=== PATIENT | male | born 1955 | race Caucasian/White ===

== ENCOUNTER → 2022-05-14 13:29 | Outpatient (BNVA) | payer MEDICARE, SELFPAY | PROVIDERS: Family Provider Family Medicine; PCP Family Medicine; Visit Provider Family Medicine | DX: R50.9 Fever, unspecified (principal); R31.9 Hematuria, unspecified; Z91.89 Other specified personal risk factors, not elsewhere classified | CPT/HCPCS: 81003; 86618; 86666; 86757 ==

== ENCOUNTER → 2022-06-26 11:48 | Outpatient (BNVA) | payer MEDICARE, SELFPAY | PROVIDERS: Family Provider Family Medicine; PCP Family Medicine; Visit Provider Clinical Nurse Specialist Adult Health | DX: R35.0 Frequency of micturition (principal); R10.9 Unspecified abdominal pain; Z91.89 Other specified personal risk factors, not elsewhere classified; J30.2 Other seasonal allergic rhinitis; R81 Glycosuria; R50.81 Fever presenting with conditions classified elsewhere; R10.84 Generalized abdominal pain | CPT/HCPCS: 81000; 87086 ==

== ENCOUNTER → 2022-06-27 08:35 | Outpatient (BNVA) | payer MEDICARE, SELFPAY | PROVIDERS: Family Provider Family Medicine; PCP Family Medicine; Visit Provider Family Medicine | DX: R10.84 Generalized abdominal pain (principal); R81 Glycosuria; R10.9 Unspecified abdominal pain; Z91.89 Other specified personal risk factors, not elsewhere classified | CPT/HCPCS: 80053; 86757 ==

== ENCOUNTER → 2022-11-19 13:42 | Outpatient (BNVA) | payer MEDICARE, SELFPAY | PROVIDERS: Family Provider Family Medicine; PCP Family Medicine; Visit Provider Family Medicine | DX: Z00.00 Encounter for general adult medical examination without abnormal findings (principal); R74.01 Elevation of levels of liver transaminase levels | CPT/HCPCS: 80053; 80061 ==

== ENCOUNTER 2022-12-17 15:34 | Emergency (ER) | payer MEDICARE, SELFPAY ==
[2022-12-17 15:39] VITALS: BP 173/97; PULSE 73; RESP 16; TEMP 36.7; O2SAT 97
--- NOTE | 2022-12-17 16:06 | XRR_ITS ---
PROCEDURE INFORMATION: Exam: XR Left Hand Exam date and time: 12/17/2022 4:17 PM Age: 67 years old Clinical indication: Injury or trauma; Other: Impaled thumb with drill bit; Puncture; Finger; Left TECHNIQUE: Imaging protocol: Radiologic exam of the left hand. Views: 3 or more views. COMPARISON: No relevant prior studies available. FINDINGS: Bones/joints: Punctate 2.8 mm radiodensity in the soft tissues overlying the 1st metacarpal distal ulnar aspect. Mild diffuse interphalangeal joint osteoarthritis. Unfused ulnar styloid process appears chronic. Soft tissues: Normal. XR/XR hand LT min 3V* [id number] IMPRESSION: 1. Negative for fracture or dislocation. 2. Punctate 2.8 mm radiodensity in the soft tissues overlying the 1st metacarpal distal ulnar aspect. 3. Mild diffuse interphalangeal joint osteoarthritis. 4. Unfused ulnar styloid process appears chronic.
--- NOTE | 2022-12-17 16:07 | W.ED.EXTPRO ---
HPI - Extremity Problem General: Chief complaint: Extremity Injury, Upper Stated complaint: right thumb injury Time Seen by Provider: 12/17/22 15:44 History of Present Illness: Patient is a 67-year-old male who comes to the ED with left thumb injury. Patient says he was using a screwdriver and a drill bit and accidentally drilled through his left thumb. He says the bit went through 1 side of his thumb and came out the other hand. He was able to remove the drill bit before coming to the ED. He endorses having mild to moderate pain in thumb that he rates currently a 4 out of 10. Patient is up-to-date on his tetanus. Denies any other injuries. Associated symptoms: Deny chest pain, fever(s) or rash Review of Systems Const: Denies: fever(s), chills or fatigue Eyes: Denies: change in vision or eye discomfort ENMT: Denies: throat pain, odynophagia, nasal discharge or nasal congestion Card: Denies: chest pain, palpitations, edema, swelling of feet/ankles, dyspnea on exertion or orthopnea Resp: Denies: dyspnea, productive cough or non-productive cough GI: Denies: abdominal pain, nausea, vomiting, diarrhea, constipation or hematochezia : Denies: flank pain, difficulty urinating, dysuria or hematuria Musc: Reports: extremity pain (Left thumb); Denies: neck pain, back pain or extremity swelling Skin/Breast: Reports: new lesions (Puncture wound to left thumb); Denies: rash Neuro: Denies: headache(s), numbness in extremities or weakness in extremities PFS ED PFSH: Medical History (Updated 12/17/22 @ 16:51 by YOANDY Jose) Essential hypertension Seasonal allergies Family History Other Cancer Social History Smoking and tobacco status: never smoked Alcohol intake: never Physical Exam Const: COMMON NORMALS: patient oriented x3 HENMT: COMMON NORMALS: normocephalic HEAD & SCALP: normocephalic MOUTH: Normal oral and palatal mucosa present THROAT: posterior oropharynx normal and uvula midline Neck/C-Spine: COMMON NORMALS: supple GENERAL: Yes normal visual inspection Resp: COMMON NORMALS: normal respiratory effort, No retractions, No use of accessory muscles and clear to auscultation bilaterally AUSCULTATION: clear to auscultation bilaterally Cardio: COMMON NORMALS: regular rate, regular rhythm, S1 normal heart sound present, S2 normal heart sound present, No gallops present (Cardio), No clicks present (Cardio), No murmurs present (Cardio) and Peripheral pulses 2+ throughout RATE: regular rate RHYTHM: regular rhythm HEART SOUNDS: S1 normal heart sound present and S2 normal heart sound present PERIPHERAL PULSES: Peripheral pulses 2+ throughout GI: COMMON NORMALS: Normal to inspection, nondistended, normoactive bowel sounds present, Soft to palpation, non-tender and no masses PALPATION: Yes Soft to palpation : COMMON NORMALS: Yes no CVA tenderness BLADDER/KIDNEY EXAM: Yes no CVA tenderness Back/Pelvis: COMMON NORMALS: no CVA tenderness Extremity: NARRATIVE EXTREMITY EXAM: Left thumb?no nailbed or nail damage noted. No visible deformity seen. No foreign body seen. 2 puncture wounds seen on opposite sides of thumb. No active bleeding. Full range of motion in thumb, but clicking sensation felt with flexion of thumb at DIP joint neurovascular intact distally. GENERAL: Yes normal exam except as noted Neuro: COMMON NORMALS: patient oriented x3 GAIT: Yes Normal gait present Skin: GENERAL SKIN EXAM: dry skin Course Vital Signs: Vital signs: Vital Signs Temperature 98.0 F 12/17/22 15:39 Pulse Rate 73 12/17/22 15:39 Respiratory Rate 16 12/17/22 15:39 Blood Pressure 173/97 12/17/22 15:39 Pulse Oximetry 97 12/17/22 15:39 Oxygen Delivery Me thod Room Air 12/17/22 15:39 MDM - Extremity (Nontraumatic) Medical Decision Making Patient is a 67-year-old male who comes to the ED with left thumb injury. Patient says he was using a screwdriver and a drill bit and accidentally drilled through his left thumb. He says the bit went through 1 side of his thumb and came out the other hand. He was able to remove the drill bit before coming to the ED. He endorses having mild to moderate pain in thumb that he rates currently a 4 out of 10. Patient is up-to-date on his tetanus. Denies any other injuries. Vital stable. Left thumb?no nailbed or nail damage noted. No visible deformity seen. No foreign body seen. 2 puncture wounds seen on opposite sides of thumb. No active bleeding. Full range of motion in thumb, but clicking sensation felt with flexion of the thumb and DIP joint neurovascular intact distally. Nurse irrigated puncture wound site extensively with normal saline and iodine wash. Triple antibiotic ointment was up applied on wound and thumb was wrapped in bandage. X-ray of right hand showed no acute fractures or findings, but did note a foreign body in the soft tissue overlying first metacarpal distal ulnar aspect. Foreign body is not where puncture wound occurred on thumb. Even though x-ray showed no fracture given type of injury, I place and order with case management for patient to get follow-up with Ortho just to make sure everything is healing up well. He was given a dose of IV antibiotics here in the ED and was diagnosed with puncture wound of the thumb. He was sent home with a prescription for an antibiotic and a pain med. Return ED precautions given. He was instructed on how to care for puncture wound site. Patient understood and agreed with plan. Lab Data Radiology Impressions Hand X-Ray 12/17/22 16:06 IMPRESSION: 1. Negative for fracture or dislocation. 2. Punctate 2.8 mm radiodensity in the soft tissues overlying the 1st metacarpal distal ulnar aspect. 3. Mild diffuse interphalangeal joint osteoarthritis. 4. Unfused ulnar styloid process appears chronic. Discharge Plan Discharge Patient Disposition: Home Clinical Impression: Puncture wound of left thumb Qualifiers: Encounter type: initial encounter Qualified Code(s): S61.032A - Puncture wound without foreign body of left thumb without damage to nail, initial encounter Condition: Stable Prescriptions: New cephalexin 500 mg capsule 500 mg PO Q6H 7 Days Qty: 28 0RF No Action sildenafil (pulm.hypertension) 20 mg tablet 20 mg PO DAILY Qty: 30 5RF Rx Instructions: administer doses at least 4-6 hours apart albuterol sulfate 90 mcg/actuation HFA aerosol inhaler 2 puff inhalation Q6H PRN (Reason: shortness of breath or wheezing) Qty: 8.5 2RF ciprofloxacin HCl [Cipro] 500 mg tablet 500 mg PO BID 10 Days Qty: 20 0RF pantoprazole 40 mg tablet,delayed release (DR/EC) 40 mg PO DAILY Qty: 90 3RF amlodipine 10 mg tablet 10 mg PO DAILY Qty: 30 0RF Discharge Orders: Discharge ED (Routine); Ordered 12/17/22 Ordered By: Roberto Jo Referrals: Viet Perez DO [Primary Care Provider] - Discharge Diet: Regular Discharge Activity: Increase activity as tolerated Patient Instructions: Puncture Wound (DC), Opioid Safety Activity Restrictions/Additional Instructions: Follow-up with medical provider as directed. Case management should be contacted in the next several days to set up an appointment with Ortho for follow-up on puncture wound to thumb. Clean daily with soap and water then apply triple antibiotic ointment on wound and keep covered with bandage. Take medications as prescribed. Return to the ER or your medical provider if condition worsens. Please read and understand discharge instructions. Thank you for choosing [facility] for your healthcare needs today. Please realize this is an emergency room and that we are providing you with a medical screening exam and this may not be complete and all inclusive of all the testing and or work up that you may need to determine your ailment or severity of your illness. It is very important that you follow up as instructed or that you return to the Emergency Department should you have concerns or if your condition changes or worsens in any way. Coding Level of Care Code ED Contract Administration Manager for Gerri Loo
[2022-12-17] MEDS: HYDROcodone-acetaminophen 7.5-325 mg Tablet 1 TAB PO (16:17)
--- NOTE | 2022-12-17 17:19 | PC.NURSE ---
Irrigated wound on L thumb with saline and iodine, used qtips and gauze to clean wound. Dressed wound with triple antibiotic ointment, gauze and tape.
--- NOTE | 2022-12-18 09:13 | DCPLANNER ---
Addendum entered by Sherin Lino 12/19/22 09:30: manager transportation received the following message from the ortho clinic regarding follow up appointment: spoke to patient - he says he will hold off on ortho follow up right now. he isnt having any problems and trying to find a day/time to come in is difficult for him. i advised him to call us if anything changes. If he does call back we will get him in with [facility] Original Note: manager transportation had message to schedule a follow up appointment for patient with urology. manager transportation sent patients information to the front office staff at urology. Patients information will be printed and reviewed. Clinic will call patient with appointment information.
== END 2022-12-17 17:57 | disposition home or self-care (01) ==
PROVIDERS: Emergency Provider Physician Assistant; PCP Family Medicine
DX: S61.032A Puncture wound without foreign body of left thumb without damage to nail, initial encounter (principal); I10 Essential (primary) hypertension; W29.8XXA Contact with other powered hand tools and household machinery, initial encounter
CPT/HCPCS: 73130; 99283

== ENCOUNTER → 2023-04-02 14:30 | Outpatient (BNVA) | payer MEDICARE, SELFPAY | PROVIDERS: PCP Family Medicine; Visit Provider Nurse Practitioner Family | DX: M19.071 Primary osteoarthritis, right ankle and foot (principal) | CPT/HCPCS: 73630 ==

== ENCOUNTER → 2024-01-07 13:08 | Outpatient (BNVA) | payer MEDICARE, SELFPAY | PROVIDERS: PCP Family Medicine; Referring Provider Family Medicine; Visit Provider Nurse Practitioner Family | DX: D48.5 Neoplasm of uncertain behavior of skin (principal); L57.0 Actinic keratosis; L91.8 Other hypertrophic disorders of the skin; L82.1 Other seborrheic keratosis; D22.5 Melanocytic nevi of trunk; L81.4 Other melanin hyperpigmentation; L57.8 Other skin changes due to chronic exposure to nonionizing radiation; B35.1 Tinea unguium | CPT/HCPCS: 11102; 17000; 17110; 99203 ==

== ENCOUNTER → 2024-06-01 12:36 | Outpatient (BNVA) | payer MEDICARE, SELFPAY | PROVIDERS: PCP Family Medicine; Visit Provider Family Medicine | DX: I10 Essential (primary) hypertension (principal); R74.01 Elevation of levels of liver transaminase levels; Z00.00 Encounter for general adult medical examination without abnormal findings | CPT/HCPCS: 80053; 80061 ==

== ENCOUNTER → 2025-01-05 15:34 | Outpatient (BNVA) | payer MEDICARE, SELFPAY | PROVIDERS: PCP Family Medicine; Visit Provider Nurse Practitioner Family | DX: L57.8 Other skin changes due to chronic exposure to nonionizing radiation (principal); X32.XXXA Exposure to sunlight, initial encounter; L81.4 Other melanin hyperpigmentation; B35.6 Tinea cruris; L30.0 Nummular dermatitis; D22.5 Melanocytic nevi of trunk | CPT/HCPCS: 99213 ==

== ENCOUNTER → 2025-05-30 11:08 | Outpatient (BNVA) | payer MEDICARE, SELFPAY | PROVIDERS: PCP Family Medicine; Visit Provider Nurse Practitioner Family | DX: L57.8 Other skin changes due to chronic exposure to nonionizing radiation (principal); X32.XXXA Exposure to sunlight, initial encounter; L81.4 Other melanin hyperpigmentation; B35.6 Tinea cruris; D18.01 Hemangioma of skin and subcutaneous tissue | CPT/HCPCS: 99213 ==